=== PATIENT | male | born 1960 | race Caucasian/White ===

== ENCOUNTER 2023-12-28 10:32 | Outpatient (CLI) | payer BC, SELFPAY ==
--- NOTE | ~2023-12-28 | XR_ITS ---
EXAMINATION: XR lumbar spine 2-3V DATE: 12/28/2023 10:42 INDICATION: Low back pain, unspecified. TECHNIQUE: 3 views of lumbar spine including standing views were obtained. COMPARISON: Lumbar spine radiographs 08/19/2010 FINDINGS: There is 9 degrees levocurvature of thoracolumbar spine. Vertebral body heights and interve rtebral disc heights are normal. There are endplate osteophytes at multiple levels. There is multilev el facet joint osteoarthritis, severe in lower lumbar spine. IMPRESSION: 1. Mild lumbar spondylosis. Reviewed, dictated and finalized at location A. IMPRESSION: 1. Mild lumbar spondylosis.
== END 2023-12-28 10:33 ==
PROVIDERS: PCP Family Medicine; Visit Provider Physician Assistant
DX: M47.896 Other spondylosis, lumbar region (principal)
CPT/HCPCS: 72100

== ENCOUNTER 2024-02-14 08:00 | Outpatient (RCR) | payer BC, SELFPAY ==
--- NOTE | 2024-01-27 15:29 | OPREHPOC ---
Outpatient Therapy Plan of Care This is a Multidisciplinary Plan of Care that may contain components documented by all disciplines (PT, OT, and ST.) PT Problem 1 PT Problem #1 Knowledge Deficit PT Goal 1 Goal 1* indep with HEP 2* correct body mechanics with lifting floor/waist height Target Visit 8 PT Problem 2 PT Problem #2 Pain PT Goal 1 Goal 1* pain rating at worst of 5/10 2* self assessment Oswestry rating of 4% limitation 3* radicular pain into R LE to buttock at worst Target Visit 8 PT Problem 3 PT Problem #3 Impaired Flexibility PT Goal 1 Goal increase flexibility of trunk and hips, to decrease test puller lumbar spine and hips: hamstring length with supine SLR 1* R 55' 2* L 55' piriformis length with supine cross leg stretch, to midline of body 3* R 4* L 5* standing trunk flexion-- fingers to mid gasca Target Visit 8 PT Problem 4 PT Problem #4 Impaired Strength PT Goal 1 Goal increase strength of trunk and hips, to improve stability to spine: single leg standing x 20 seconds with good stability 1* R 2* L 3* pt perform standing R and L LE exercises in standing with 1 UE support and good stability Target Visit 8
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
--- NOTE | 2024-02-23 16:01 | PCPTNOTE ---
Called & cancelled, due to work schedule. AKS
--- NOTE | 2024-02-24 09:47 | PTOPDC ---
Assessment and note entered by Tasneem Cannon, PT Discharge Report Assessment Status Discharge - Pt Not Present Diagnosis back pain ICD-10 Condition Codes (PT) Pain in low back M54.50 Onset November 2023 Subjective Information pt called and left a message to cancel all of his PT appointments, going a different route for PT. Assessment PT Clinical Summary Discharge PT per pt message as above. He received 2 PT appointments and canceled 1 due to not being able to get away from work. The goals were not addressed. Plan of Care PT Services Indicated No
== END 2024-02-24 14:21 | disposition hospice, home (50) ==
LOC: ANHPT 08:00
PROVIDERS: PCP Family Medicine; Visit Provider Physician Assistant
DX: M54.50 Low back pain, unspecified (principal)
CPT/HCPCS: 97014; 97110; 97161; 97530; G0283

== ENCOUNTER 2024-08-31 08:42 | Outpatient (CLI) | payer BC, SELFPAY ==
--- OUTSIDE RECORDS SUMMARY | 2024-08-31 08:56 | XMS_ITS | Clinical Summary ---
Author Organization [facility] Address [address] [place] [address] Care Team Providers Care Multi Needle Machine Operator Name Role Phone Rick Gao DO Primary Care Provider [phone] Rick Gao DO Unavailable [phone] Allergies No known active allergies Medications meclizine (ANTIVERT) 25 mg tablet Take 1 tablet (25 mg total) by mouth 3 (three) times a day as needed for dizziness 30 tablet 3 Active pravastatin (PRAVACHOL) 20 mg tablet Take 1 tablet (20 mg total) by mouth daily 90 tablet 3 3 Active naproxen (NAPROSYN) 500 mg tablet TAKE 1 TABLET BY MOUTH TWICE A DAY WITH FOOD 180 tablet 1 3 Active lisinopriL (PRINIVIL,ZESTR IL) 10 mg tablet TAKE 1 TABLET BY MOUTH EVERY DAY 100 tablet 1 4 Active ezetimibe (ZETIA) 10 mg tablet TAKE 1 TABLET BY MOUTH EVERY DAY AT NIGHT 100 tablet 1 4 Active metFORMIN XR (GLUCOPHAGE XR) 500 mg 24 hr tablet TAKE 1 TABLET BY MOUTH EVERY DAY WITH BREAKFAST 90 tablet 1 4 Active famotidine (PEPCID) 20 mg tablet TAKE 1 TABLET BY MOUTH TWICE A DAY 180 tablet 1 4 Active Active Problems Problem Noted Date Diagnosed Date Elevated PSA 09/02/2022 Hyperkalemia 09/02/2022 Prediabetes 09/02/2022 CYNTHIA (obstructive sleep apnea) 09/02/2022 Benign meningioma 08/30/2022 Dyslipidemia 08/29/2022 Essential hypertension with goal blood pressure less than 130/80 08/29/2022 Gastroesophageal reflux disease 08/29/2022 Diverticulosis 02/23/2022 Immunizations Immunization Administration Dates Next Due Influenza, Quadrivalent, Spl it, Preservative Free, Intramuscular 04/14/2023 Influenza, Trivalent, IM (MDV) 07/17/2012 Surgical History Surgery Date Site/Laterality Comments WISDOM TOOTH EXTRACTION COLONOSCOPY Medical History Medical History Date Comments GERD (gastroesophageal reflux disease) Arthritis Hypertension Family History Medical History Relation Name Comments Snoring Father [place] No Known Problems Maternal Grandfather Arthritis Maternal Grandmother Cancer Mother Rin [place] Snoring Mother Rin [place] No Known Problems Paternal Grandfather No Known Problems Paternal Grandmother Colon cancer Neg Hx Prostate cancer Neg Hx Testicular cancer Neg Hx Relation Name Status Comments Father [place] Alive Maternal Grandfather Maternal Grandmother Mother Rin [place] Paternal Grandfather Paternal Grandmother Social History Tobacco Use Types Packs/Day Years Used Date Smoking Tobacco: Never Smokeless Tobacco: Never Tobacco Cessation:Counseling Given: Not Answered AUDIT-C Answer Date Recorded Q1: How often do you have a drink containing alc ohol? 2-4 times a month 08/30/2022 Q2: How many drinks containi ng alcohol do you have on a typical day when you are drinking? 1 or 2 08/30/2022 Q3: How often do you have si x or more drinks on one occasion? Never 08/30/2022 PHQ-2 Answer Date Recorded PHQ-2 Total Score (If total score is 3 or more points, staff should administer the PHQ-9) 0 08/30/2022 Personal Safety Answer Date Recorded Getting School Help Needed Not on file 04/14 Sex and Gender Information Value Date Recorded Sex Assigned at Not on file Legal Sex Male 2:49 AM LAMINATION TECHNICIAN Gender Identity Male 04/13/2023 1:46 PM CDT Sexual Orientation Straight 04/13/2023 1: 46 PM CDT Obstetrics History Last Filed Vital Signs Vital Sign Reading Time Taken Comments Blood Pressure 120/80 04/14/2023 9:07 AM CDT Pulse 62 04/14/2023 9:07 AM CDT Temperature 36.3 C (97.4 F) 04/05/2023 9:26 AM CDT Respiratory Rate 16 04/05/2023 9:26 AM CDT Oxygen Saturation 99% 04/14/2023 9:07 AM CDT Inhaled Oxygen Concentration - - Weight 107.5 kg (237 lb) 04/14/2023 9:07 AM CDT Height 167.6 cm (5' 6 ) 04/14/2023 9:07 AM CDT Body Mass Index 38.25 04/14/2023 9:07 AM CDT Plan of Treatment Health Maintenance Due Date Last Done Comments DTaP/Tdap/Td Vaccine (1 - Tdap) 1973 Hepatitis B Screening 1980 Zoster Vaccine (1 of 2) 2012 Depression Screening 08/31/2023 08/30/2022 Regular Well Visit/Exam 18-64 08/31/2023 08/30/2022 Influenza Vaccine (#1) 2024 , 07/17/2012 Prostate Cancer Screening-PSA 09/10/2024, 08/30/2022 Colon Cancer Screening-Colonoscopy 09/21/2032 09/21/2022 Hepatitis C Screening Completed 08/30/2022 Pneumococcal vaccine <65 Aged Out No longer eligible based on patient's age to complete this topic Procedures Procedure Name Priority Date/Time Associated Diagnosis Comments PSA, TOTAL AND FREE Routine 09/10/2022 9 :30 AM CDT Elevated PSA HEPATITIS PANEL, ACUTE Routine 08/30/2022 10:18 AM LAMINATION TECHNICIAN Health maintenance examination from Last 3 Months or Most Recently Relevant to Health Maintenance Results * PSA, total and free (09/10/2022 9:30 AM CDT) PSA-free 0.6 ng/mL [facility] PSA-Total 3.2 <=3.5 ng/mL [facility] PSA-Free/Total Ratio See Footnote [facility] Comment: Ratio not calculated because clinical usefulness is not defined except in range of total PSA 4.0-10.0 ng/mL. ADDITIONAL INFORMATION The testing method is an electrochemiluminescence assay manufactured by [employer] and performed on the Modular or Brain system. Values obtained with different assay methods or kits may be different and cannot be used interchangeably. Test results cannot be interpreted as absolute evidence for the presence or absence of malignant disease. Test Performed by: [facility] [address] [place] [address] Paving Contractor: Ralf Concepcion M.D. Ph.D.; CLIA# [id number] Blood 09/10/2022 9:30 AM CDT 09/10/2022 1:08 PM CDT us Rick Gao DO LAB BLOOD ORDERABLES Final Result Performing Organization Address City/[facility]/ZIP Co de Phone Number [facility] [place] [address] * Hepatitis panel, acute (08/30/2022 10:18 AM LAMINATION TECHNICIAN) Hep A IgM Nonreactive Nonreactive [facility] Hep B core IgM Nonreactive Nonreactive [facility] Hep C Ab Nonreactive Nonreactive [facility] Comment:Antibodies to HCV no t detected. Does NOT exclude the possibility of recent exposure to HCV. Current interpretive data was last revised on 22 HepBsAg Nonreactive Nonreactive [facility] Blood 08/30/2022 10:1 8 AM LAMINATION TECHNICIAN 08/30/2022 11:53 AM LAMINATION TECHNICIAN us Rick Gao DO LAB MICROBIOLOGY - GENERAL ORDERABLES Final Result Performing Organization Address City/[facility]/ZIP Co de Phone Number [facility] [place] [address] from Last 3 Months or Most Recently Relevant to Health Maintenance Insurance ANTHEM ACCESS CHOICE ANTHEM ACCESS CHOICE ANTHEM ACCESS CHOICE ANTHEM ACCESS CHOICE ANTHEM ACCESS CHOICE Care Teams Multi Needle Machine Operator Relationship Specialty Start Date End Date Rick Gao DO [facility] [address] [place] [address] PCP - General Family Medicine 04/05/23 Rick Gao DO [facility] [address] [place] [address] Family Medicine 04/05/23
--- OUTSIDE RECORDS SUMMARY | 2024-08-31 08:56 | XMS_ITS | Clinical Summary ---
Author Organization [facility] Address [address] [place] [address] Care Team Providers Care Lead Esthetician Name Role Phone Unavailable Primary Care Provider Unavailabl e Allergies No known active allergies Medications ezetimibe (ZETIA) 10 mg tablet TAKE 1 TABLET BY MOUTH EVERY DAY AT NIGHT 2 Active lisinopriL (PRINIVIL) 10 mg tabletIndications:P rimary hypertension Take 1 Tablet (10 mg) by mouth daily. 90 Tablet 3 2 Active pravastatin (PRAVACHOL) 20 mg tabletIndications:H yperlipidemia, unspecified hyperlipidemia type Take 1 Tablet (20 mg) by mouth daily at bedtime. 90 Tablet 3 2 Active metFORMIN (GLUCOPHAGE XR) 500 mg Extended Release 24 hour tabletIndications:P rediabetes Take 1 Tablet (500 mg) by mouth daily with breakfast. 90 Tablet 3 2 Active famotidine (PEPCID) 20 mg tablet TAKE 1 TABLET BY MOUTH TWICE A DAY NEEDED FOR 90 DAYS. 180 Tablet 1 3 Active Active Problems Problem Noted Date Diagnosed Date Primary hypertension 02/23/2022 Diverticulosis 02/23/2022 Sleep apnea 09/16/2010 Hyperlipidemia GERD (gastroesophageal reflux disease) Encounters Date Type Department Care Team Description 07/25/2024 External Device Data [facility] ABSTRACTION Provider, Abstract from Last 3 Months Family History Medical History Relation Name Comments Cancer Mother Rin [place] Hypertension Sister Tasneem Resendez Colon Cancer Neg Hx Relation Name Status Comments Mother Rin [place] Sister Tasneem Resendez Social History Tobacco Use Types Packs/Day Years Used Date Smoking Tobacco: Never Tobacco Cessation:Counseling Given: Not Answered Alcohol Use Standard Drinks/Week Comments Yes 3 (1 standard drink = 0.6 oz pur e alcohol) Feeling Safe Answer Date Recorded Are you in a relationship wi th someone who hurts you emotionally and/or physically? No 09/21/2022 Sex and Gender Information Value Date Recorded Sex Assigned at Not on file Legal Sex Male 3:33 PM CDT Gender Identity Not on file Sexual Orientation Not on file Last Filed Vital Signs Vital Sign Reading Time Taken Comments Blood Pressure 119/60 09/21/2022 2:39 PM CDT Pulse 69 09/21/2022 2:39 PM CDT Temperature 35.9 C (96.7 F) 09/21/2022 2:17 PM CDT Respiratory Rate 18 09/21/2022 2:39 PM CDT Oxygen Saturation 98% 09/21/2022 2:39 PM CDT Inhaled Oxygen Concentration - - Weight 107.8 kg (237 lb 9.6 oz) 023 12:54 PM CDT Height 167.6 cm (5' 6 ) 09/21/2022 12:5 4 PM CDT Body Mass Index 38.35 09/21/2022 12:54 PM CDT Plan of Treatment Health Maintenance Due Date Last Done Comments DTAP/TDAP/TD VACCINES (1 - Tdap) 1981 FIT-DNA Q 3 years 12/27/2007 FIT/FOBT Q 1 year 12/27/2007 Flex Sig/CT Colonography Q 5 years 12/27/2007 ZOSTER VACCINE (1 of 2) 2012 INFLUENZA VACCINE (#1) 2024 COLORECTAL SCREENING 09/21/2032 09/21/2022, 09/21/2022 Colorectal Cancer Screening 09/21/2032 RSV VACCINE (60+ or ) (1 - 1-dose 75+ series) 2037 PNEUMOCOCCAL VACCINE 0-49 YEARS Aged Out No longer eligible b ased on patient's age to complete this topic Procedures Procedure Name Priority Date/Time Associated Diagnosis Comments COLONOSCOPY REPORT 09/21/2022 2: 17 PM CDT from Last 3 Months or Most Recently Relevant to Health Maintenance Results * COLONOSCOPY REPORT (09/21/2022 2:17 PM CDT) Narrative Procedure Note Ancelmo Adamson MD - 09/21/2022 2:16 PM CDT [facility] Patient Name: Juan A York Procedure Date: 09/21/2022 Date of : 1960 Attending MD: Ancelmo Adamson MD, Procedure: Colonoscopy Indications: Screening for colorectal malignant neoplasm Patient Profile: Refer to note in patient chart for documentation of history and physical. Providers: Ancelmo Adamson MD Referring MD: Charlee Brasher Medicines: Monitored Anesthesia Care Complications: No immediate complications. Procedure: Informed consent was obtained for the procedure, including moderate sedation after risks were discussed. Based on the pre-procedure assessment, including review of the patient's medical history, medications, allergies, and review of systems, the patient was deemed to be an appropriate candidate for sedation. A timeout was performed. Continuous ECG monitoring, pulse oximetry, blood pressure monitoring, and direct observation were performed. The Colonoscope was introduced through the anus and advanced to the terminal ileum. The colonoscopy was performed without difficulty. The patient tolerated the procedure well. The quality of the bowel preparation was adequate. The terminal ileum, ileocecal valve, appendiceal orifice, and rectum were photographed. Estimated Blood Loss: Estimated blood loss: none. Findings: Hemorrhoids were found on perianal exam. The terminal ileum appeared normal. Two sessile polyps were found in the ascending colon. The polyps were 4 to 6 mm in size. These polyps were removed with a cold snare. Resection and retrieval were complete. Scattered small and large-mouthed diverticula were found in the sigmoid colon and descending colon. Non-bleeding internal hemorrhoids were found during retroflexion. The hemorrhoids were small. The exam was otherwise without abnormality. Impression: - Hemorrhoids found on perianal exam. - The examined portion of the ileum was normal. - Two 4 to 6 mm polyps in the ascending colon, removed with a cold snare. Resected and retrieved. - Diverticulosis in the sigmoid colon and in the descending colon. - Non-bleeding internal hemorrhoids. - The examination was otherwise normal. Recommendation: - The results from the exam today were discussed. - Await pathology results. - High fiber diet indefinitely. - Repeat colonoscopy in 5 years for surveillance. - Thanks for the opportunity of seeing this nice patient. Ancelmo Adamson MD 09/21/2022 2:16:01 PM This report has been signed electronically. Number of Addenda: [address]; [place] [address] Ancelmo Adamson MD GI PROCEDURE ORDER JOSH Final Result from Last 3 Months or Most Recently Relevant to Health Maintenance Insurance [facility] BLUE ACCESS CHOICE Advance Directives For more information, please contact: [phone] * Full Code (Latest Code Status on File) Date Activated Date Inactivated Comments 09/21/2022 12:59 PM 09/21/2022 4:57 PM
--- OUTSIDE RECORDS SUMMARY | 2024-08-31 08:56 | XMS_ITS | Referral Summary ---
Author Organization [facility] Address [address] [place] [address] Care Team Providers Care Minister Assistant Name Role Phone Unavailable Primary Care Provider Unavailabl e Source Comments [facility] [employer],non-owned Affiliates and Associated Physician Practices is amultiple site organization consisting of ambulatory clinics and hospital sitesin [place], [place], [place] and [place]. This disclosure is being madepursuant to the Care Everywhere program and may not contain all information available regarding this patient. Last updated 18.[facility] [employer] Allergies No known active allergies Medications * Be aware that medications may not be up to date on this document. Alwaysverify current medications with the patient. Medication Sig Dispensed Refills Start Date End Date Status Blood Pressure Monitoring (Blood Pressure Digital Soln) KIT 06/30/2022 Active ezetimibe (Zetia) 10 MG tablet Take 1 (one) tablet by mouth once daily 12/20/2021 Active famotidine (Pepcid) 20 MG tablet Take 1 (one) tablet by mouth 2 times daily 07/01/2022 Active lisinopril (Prinivil; Zestril) 10 MG tablet Take 1 (one) tablet by mouth once daily 02/23/2022 Active metFORMIN ER 24hr (Glucophage XR) 500 MG tablet Take 1 (one) tablet by mouth once daily 04/01/2022 Active GaviLyte-C 240 g solution 06/10/2022 Active pravastatin (Pravachol) 20 MG tablet Take 1 (one) tablet by mouth at bedtime 04/01/2022 Active Social History Tobacco Use Types Packs/Day Years Used Date Smoking Tobacco: Never Smokeless Tobacco: Never Tobacco Cessation:Counseling Given: Not Answered Alcohol Use Standard Drinks/Week Comments Yes 0 (1 standard drink = 0.6 oz pur e alcohol) social Sex and Gender Information Value Date Recorded Sex Assigned at Not on file Gender Identity Not on file Sexual Orientation Not on file Last Filed Vital Signs Vital Sign Reading Time Taken Comments Blood Pressure 110/68 08/03/2022 9:27 AM PENOLOGY TEACHER Pulse 81 08/03/2022 9:27 AM PENOLOGY TEACHER Temperature - - Respiratory Rate - - Oxygen Saturation - - Inhaled Oxygen Concentration - - Weight 106.4 kg (234 lb 8 oz) 08/03/2022 9:27 AM PENOLOGY TEACHER Height 167.6 cm (5' 6 ) 08/03/2022 9:27 AM PENOLOGY TEACHER Body Mass Index 37.85 08/03/2022 9:27 AM PENOLOGY TEACHER Plan of Treatment Not on file
--- OUTSIDE RECORDS SUMMARY | 2024-08-31 08:56 | XMS_ITS | Patient Health Summary ---
Author Organization [facility] Address [address] [place] [address] Care Team Providers Care Sheltered Workshop Executive Director Name Role Phone Unavailable Primary Care Provider Unavailabl e Note from [facility],non-owned Affiliates and Associated Physician Practices is amultiple site organization consisting of ambulatory clinics and hospital sitesin [place] and [place]. This disclosure is being madepursuant to the Care Everywhere program and may not contain all information available regarding this patient. Last updated 18.[facility] Allergies No known active allergies Medications * Be aware that medications may not be up to date on this document. Alwaysverify current medications with the patient. * Blood Pressure Monitoring (Blood Pressure Digital Soln) KIT(Started 06/30/2022) * ezetimibe (Zetia) 10 MG tablet(Started 12/20/2021) Take 1 (one) tablet by mouth once daily * famotidine (Pepcid) 20 MG tablet(Started 07/01/2022) Take 1 (one) tablet by mouth 2 times daily * lisinopril (Prinivil; Zestril) 10 MG tablet(Started 02/23/2022) Take 1 (one) tablet by mouth once daily * metFORMIN ER 24hr (Glucophage XR) 500 MG tablet(Started 04/01/2022) Take 1 (one) tablet by mouth once daily * GaviLyte-C 240 g solution(Started 06/10/2022) * pravastatin (Pravachol) 20 MG tablet(Started 04/01/2022) Take 1 (one) tablet by mouth at bedtime Social History Tobacco Use Types Packs/Day Years [...] Comments Blood Pressure 110/68 08/03/2022 9:27 AM INFORMATION SERVICES VICE PRESIDENT Pulse 81 08/03/2022 9:27 AM INFORMATION SERVICES VICE PRESIDENT Temperature - - Respiratory Rate - - Oxygen Saturation - - Inhaled Oxygen Concentration - - Weight 106.4 kg (234 lb 8 oz) 08/03/2022 9:27 AM INFORMATION SERVICES VICE PRESIDENT Height 167.6 cm (5' 6 ) 08/03/2022 9:27 AM INFORMATION SERVICES VICE PRESIDENT Body Mass Index 37.85 08/03/2022 9:27 AM INFORMATION SERVICES VICE PRESIDENT
--- OUTSIDE RECORDS SUMMARY | 2024-08-31 08:56 | XMS_ITS | Clinical Summary ---
Author Organization [facility] Address [address] [place] [address] Care Team Providers Care Hospice/Home Health Aide Name Role Phone Unavailable Primary Care Provider Unavailabl e Source Comments [facility],non-owned Affiliates and Associated Physician Practices is amultiple site organization consisting of ambulatory clinics and hospital sitesin [place], [place], [place] and [place]. This disclosure is being madepursuant to the Care Everywhere program and may not contain all information available regarding this patient. Last updated 18.[facility] Allergies No known active allergies Medications * [...] Comments Blood Pressure 110/68 08/03/2022 9:27 AM HAT CONDITIONER Pulse 81 08/03/2022 9:27 AM HAT CONDITIONER Temperature - - Respiratory Rate - - Oxygen Saturation - - Inhaled Oxygen Concentration - - Weight 106.4 kg (234 lb 8 oz) 08/03/2022 9:27 AM HAT CONDITIONER Height 167.6 cm (5' 6 ) 08/03/2022 9:27 AM HAT CONDITIONER Body Mass Index 37.85 08/03/2022 9:27 AM HAT CONDITIONER Plan of Treatment Health Maintenance Due Date Last Done Comments COLOGUARD (AGES 45-75) - COL ON CA SCREENING 1962 COLON MONITORING 1962 COLONOSCOPY - COLON CA SCREENING 1962 CT COLONOGRAPHY - COLON CA SCREENING 1962 Colorectal Cancer Screening 1962 FIT - COLON CA SCREENING 1962 FLEX SIG - COLON CA SCREENING 1962 HIV SCREENING 1977 HEPATITIS C SCREENING 12/21/1980 DTAP/TDAP/TD VACCINES (1 - Tdap) 1981 PNEUMOCOCCAL VACCINE 50+ (1 of 1 - PCV) 2012 ZOSTER VACCINE (1 of 2) 2012 SCREENING FOR DIABETES 08/03/2022 COVID-19 VACCINE (1 - 2023-2 5 season) 2024 INFLUENZA VACCINE (#1) 2024 DEPRESSION SCREENING 06/27/2024 Respiratory Syncytial Virus (RSV) Vaccine Pt: or over 60 yrs (1 - 1-dose 75+ series) 2037 HEPATITIS B VACCINE Aged Out No longe r eligible based on patient's age to complete this topic HIB VACCINE Aged Out No longer eligi ble based on patient's age to complete this topic HPV VACCINE Aged Out No longer eligi ble based on patient's age to complete this topic MENINGOCOCCAL (Group B) VACCINE Aged Out No longer eligible based on patient's age to complete this topic MENINGOCOCCAL VACCINE Aged Out No paolo xin eligible based on patient's age to complete this topic PNEUMOCOCCAL VACCINE Aged Out No long er eligible based on patient's age to complete this topic
--- OUTSIDE RECORDS SUMMARY | 2024-08-31 08:56 | XMS_ITS | Referral Summary ---
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 Gender Identity Male 04/13/2023 1:46 PM CDT Sexual Orientation Straight 04/13/2023 1: 46 PM CDT Last Filed Vital Signs Vital Sign Reading [...] 04/14/2023 9:07 AM CDT Plan of Treatment Not on file Procedures Procedure Name Priority Date/Time Associated Diagnosis Comments PSA, TOTAL AND FREE Routine 09/10/2022 9 :30 AM CDT Elevated PSA HEPATITIS PANEL, ACUTE Routine 08/30/2022 10:18 AM COMPLIANCE VICE PRESIDENT Health maintenance examination from Last 3 Months or Most Recently Relevant to Health Maintenance Results * PSA, total and free (09/10/2022 9:30 AM CDT) PSA-free 0.6 ng/mL [facility] PSA-Total 3.2 <=3.5 ng/mL [facility] PSA-Free/Total Ratio See Footnote [facility] Comment: Ratio not calculated because clinical usefulness is not defined except in range of total PSA 4.0-10.0 ng/mL. ADDITIONAL INFORMATION The testing method is an electrochemiluminescence assay manufactured by [employer] and performed on the Modular or Brain system. Values obtained with different assay methods or kits may be different and cannot be used interchangeably. Test results cannot be interpreted as absolute evidence for the presence or absence of malignant disease. Test Performed by: [place] [address] [employer]: Ralf Concepcion M.D. Ph.D.; CLIA# [id number] Blood 09/10/2022 9:30 AM CDT 09/10/2022 1:08 PM CDT us Rick Gao DO LAB BLOOD ORDERABLES Final Result [facility] Department [place] [address] * Hepatitis panel, acute (08/30/2022 10:18 AM COMPLIANCE VICE PRESIDENT) Hep A IgM Nonreactive Nonreactive [facility] Hep B core IgM Nonreactive Nonreactive [facility] Hep C Ab Nonreactive Nonreactive [facility] Comment:Antibodies to HCV no t detected. Does NOT exclude the possibility of recent exposure to HCV. Current interpretive data was last revised on 22 HepBsAg Nonreactive Nonreactive [facility] Blood 08/30/2022 10:1 8 AM COMPLIANCE VICE PRESIDENT 08/30/2022 11:53 AM COMPLIANCE VICE PRESIDENT Rick Gao DO LAB MICROBIOLOGY - GENERAL ORDERABLES Final Result [facility] Department [place] [address] from Last 3 Months or Most Recently Relevant to Health Maintenance Insurance To8to To8to ANTHEM ACCESS CHOICE ANTHEM ACCESS CHOICE ANTHEM ACCESS CHOICE Care Teams Tool Or Die Drawing Checker Relationship Specialty Start Date End Date Rick Gao DO [facility] [address] [place] [address] PCP - General Family Medicine 04/05/23 Rick Gao DO [facility] [facility] [address] [place] [address] Family Medicine 04/05/23
== END 2024-08-31 08:43 | disposition home or self-care (01) ==
LOC: ANHAUDIO 08:42
PROVIDERS: PCP Family Medicine; Visit Provider Physician Assistant
DX: H90.3 Sensorineural hearing loss, bilateral (principal)
CPT/HCPCS: 92557; 92567

== ENCOUNTER 2024-12-25 08:00 | Outpatient (RCR) | payer BC, SELFPAY | END 2024-12-25 23:59 | disposition home or self-care (01) | LOC: ANHAUDIO 08:00 | PROVIDERS: PCP Family Medicine; Visit Provider Family Medicine | DX: Z46.1 Encounter for fitting and adjustment of hearing aid (principal) | CPT/HCPCS: 99199; V5257 ==

== ENCOUNTER 2025-05-03 12:41 | Emergency (ER) | payer BC, SELFPAY ==
[2025-05-03 13:00] VITALS: BP 130/64; PULSE 87; RESP 18; TEMP 36.4; O2SAT 97
--- NOTE | 2025-05-03 13:14 | ED.EXTPRO ---
HPI - Extremity Problem General Chief complaint: Extremity Injury, Lower Stated complaint: Right Foot Toe Pain Time Seen by Provider: 05/03/25 12:45 Source: patient and RN notes reviewed Mode of arrival: ambulatory Limitations: no limitations History of Present Illness HPI Narrative: 64-year-old male patient presents Express Care complaining of right toe pain and swelling for the last week. Patient says he has ingrown toenail said he tried to remove it himself since then he has developed redness swelling and pain to his right great toe. Patient also reports purulent drainage coming from the toe. Patient has any fevers, body aches, chills, or any other symptoms. Patient has been trending else [id number] to help with symptoms. Related Data Allergies Allergy/AdvReac Type Severity Reaction Status Date / Time No Known Allergies Allergy Verified 05/03/25 12:52 Review of Systems Review of Systems: CONSTITUTIONAL: Denies fever, chills, or sweats. EYES: Denies visual changes, redness, or discharge. ENT: Denies rhinorrhea, congestion, sore throat, or otalgia. CARDIOVASCULAR: Denies chest pain, palpitations, or edema. RESPIRATORY: Denies cough or dyspnea. GASTROINTESTINAL: Denies abdominal pain, nausea, vomiting, or diarrhea. GENITOURINARY: Denies dysuria or hematuria. SKIN: Denies rash or itching. MUSCULOSKELETAL: Denies back pain, joint pain, or myalgia. Positive for right toe pain and swelling. NEUROLOGIC: Denies headache, numbness, or weakness. PSYCHIATRIC: Denies anxiety or depression. All other systems reviewed are negative, except as documented in HPI. FORMERLY [facility], [facility] Past Medical History Medical History Arthritis of glenohumeral joint Obesity Hyperlipidemia Benign essential HTN Surgical History Surgical History H/O colonoscopy with polypectomy Family History Family History Sibling Hypertension Family history of diabetes mellitus in first degree relative Mother Family history of malignant neoplasm Father Patient's father is in good health Sibling Patient's sister is in good health Patient's brother is in good health Mother Carcinoma of colon, Onset Age: 53 Patient's mother is Other Family history of cardiovascular disease Social History Social History Social History: Single Second hand tobacco smoke exposure: No Alcohol intake: current Alcohol use details: Occasionally Substance use: never Substance use type: does not use Do You Feel Safe in your Home?: Yes Lack of Transportation: No Lack of Food: Never True Current Housing: I Have Housing Concerned About Future Housing: No Difficulty Paying Gas/Electric Bills: No Difficulty Paying for Meds: No Currently Unemployed: No Education: Associate Degree Difficulty w/ Childcare or Family Care: No Living arrangements: alone Occupation/Education: occupation 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 There is no relevant family history pertinent to the patient complaint. Exam Narrative: GENERAL: This is a well-nourished, well-developed adult, in no apparent distress. They are non ill-appearing, nontoxic appearing. HEAD: normocephalic, atraumatic. EYES: Sclera clear/white. Conjunctiva normal. Vision is grossly intact. Extraocular movements intact EARS: External ears normal, Hearing grossly intact. NOSE: External nose normal THROAT: Mucous membranes moist, NECK: Neck supple, CARDIOVASCULAR: Regular rate and rhythm RESPIRATORY: Respiratory rate normal, respiratory effort nonlabored, no respiratory distress SKIN: warm, Dry, intact with no suspicious lesions or rash, good texture and turgor. NEURO: awake, alert, and oriented to person, place and time. There were no obvious focal neurologic abnormalities. EXTREMITIES: Right great toe: Distal toe is erythematous extending to the PIP joint. Paronychia present without area of fluctuance or induration. Onychocryptosis to medial toe. It it warm to touch and tender to palpation. Nailbed and plate intact. Capillary refill less than 2 seconds. Normal range of motion. Sensation intact. Neurovascular status intact. Course Course Emergency Course: Portions of this record may have been created with voice recognition software Level of Care: Express Care Visit Vital Signs Vital signs: Vital Signs Temperature 97.6 F 05/03/25 13:00 Pulse Rate 87 05/03/25 13:00 Respiratory Rate 18 05/03/25 13:00 Blood Pressure 130/64 05/03/25 13:00 Pulse Oximetry 97 05/03/25 13:00 Oxygen Delivery Room Air 05/03/25 13:00 Temperature 97.6 F 05/03/25 13:00 Pulse Rate 87 05/03/25 13:00 Respiratory Rate 18 05/03/25 13:00 Blood Pressure 130/64 05/03/25 13:00 Pulse Oximetry 97 05/03/25 13:00 Oxygen Delivery Room Air 05/03/25 13:00 Reviewed MDM - Extremity (Nontraumatic) MDM Narrative Medical decision making narrative: Patient's ingrown toenail to right great toe, given extensive erythema and swelling to the distal great toe will treat for an infected paronychia with Keflex. No evidence of abscess to paronychia. Also prescribe triamcinolone cream to apply topically to the toe. Discussed physical exam findings. Advised supportive measures and signs/symptoms to go to the ER. Pt is appropriate for outpt treatment and f/u. Differential Diagnosis Differential diagnosis: Likely other (Paronychia with abscess, cellulitis, paronychia ,retronychia ) Critical Care Time Critical Care Time Critical Care Time: No Discharge Plan Discharge Clinical Impression: Ingrowing nail, right great toe, Acute paronychia of toe of right foot Patient Disposition: Home Condition: Stable Instructions: Antibiotic Form, Paronychia (ED), Ingrown Nail (ED) Additional Instructions: Soak the affected foot in warm soapy water for 10-20 minutes twice daily followed by triamcinolone cream to the affected toe twice a day for 2 weeks. Take the antibiotics as directed. Follow-up with PCP or podiatry for further evaluation management of your ingrown toenail. If you developed worsening redness, swelling, pain, drainage, fevers, or any other concerns please go to the ER immediately. Patient Language: Greenlandic Prescriptions: New cephalexin 500 mg capsule 500 mg PO Q6H 7 Days Qty: 28 0RF triamcinolone acetonide 0.5 % ointment 1 applic topical BID 14 Days Qty: 15 0RF Rx Instructions: Soak the affected foot in warm soapy water for 10-20 minutes twice daily followed by triamcinolone cream to the affected toe twice a day for 2 weeks. No Action metformin 1,000 mg tablet See Rx Instructions .ROUTE .COMPLEX Qty: 180 1RF Dose Instruction: TAKE 1 TABLET BY MOUTH TWICE A DAY Rx Instructions: TAKE 1 TABLET BY MOUTH TWICE A DAY atorvastatin [Lipitor] 20 mg tablet 20 mg PO DAILY Qty: 90 1RF ezetimibe 10 mg tablet 10 mg PO DAILY Qty: 90 0RF famotidine 20 mg tablet 20 mg PO BID Qty: 180 0RF lisinopril 10 mg tablet 10 mg PO DAILY Qty: 90 1RF Follow-up/Referrals: Johnny De La Rosa MD [Primary Care Provider, Family Practice] Time of Disposition: 13:02
== END 2025-05-03 13:10 | disposition home or self-care (01) ==
PROVIDERS: PCP Family Medicine
DX: L60.0 Ingrowing nail (principal); L03.031 Cellulitis of right toe; I10 Essential (primary) hypertension; E78.5 Hyperlipidemia, unspecified; E66.9 Obesity, unspecified; Z68.37 Body mass index [BMI] 37.0-37.9, adult
CPT/HCPCS: 99213; G0463